=== PATIENT | female | born 1960 | race Caucasian/White ===

== ENCOUNTER 2018-02-09 16:53 | Emergency (ER) | payer SELFPAY ==
[2018-02-09] MEDS ORDERED: Benzonatate 100 MG CAP ONE (17:48)
[2018-02-09] MEDS ORDERED: Azithromycin 250 MG TAB ONE (17:48)
--- NOTE | 2018-02-09 21:49 | RAD ---
CHEST TWO VIEWS: 02/09/18 No prior films are available for comparison. There is a small amount of streaking in the left lung ba se. I cannot exclude a small developing infiltrate here. There is a 6 mm nodular density seen in the left mid lung zone that is indeterminate in significance. The right lung is clear. There are no effus ions. The heart size is normal. Calcification is seen in the aortic arch. IMPRESSION: 1. Left basilar streaking. Early infiltrate possible. 2. Vague 6 mm nodular density in the left mid lung zone. This would need elective evaluation wit h CT to help determine its significance. Alternatively, if an old chest film is available, this would be even more useful and may preclude further studies. 3. Arteriosclerosis. Code T POS: HOME
== END 2018-02-09 17:53 | disposition home or self-care (01) ==
LOC: BURERS 16:53
DX: J20.9 Acute bronchitis, unspecified (principal); J01.90 Acute sinusitis, unspecified; M06.9 Rheumatoid arthritis, unspecified; J44.9 Chronic obstructive pulmonary disease, unspecified; Z87.891 Personal history of nicotine dependence
CPT/HCPCS: 71046

== ENCOUNTER 2018-09-30 17:30 | Emergency (ER) | payer SELFPAY ==
[2018-09-30 19:22] LABS: #Basophils 0.1 thou/uL (0.0-0.2); #Eosinphils 0.2 thou/uL (0.0-0.7); #Lymphocytes 2.6 thou/uL (1.20-3.40); #Monocytes 0.7 thou/uL (0.11-0.59); #Neutrophils 5.7 thou/uL (1.40-6.50); %Eosinophils 2.6 % (0.0-10.0); %Lymphocytes 27.9 % (21.0-51.0); %Monocytes 7.4 % (0.0-10.0); Hemoglobin 13.6 g/dL (12.0-16.0); Mean Corpuscular HGB CONC 33.6 g/dL (32.0-36.0); Mean Corpuscular Hemoglobin 29.3 pg (27.0-31.0); Mean Corpuscular Volume 87.3 fL (78.0-98.0); Mean Platelet Volume 8.6 fL (7.4-10.4); Platelet Count 300 thou/uL (130-400); Red Blood Cell (RBC) Count 4.64 mill/uL (4.20-5.40); White Blood Cell (WBC) Count 9.3 thou/uL (4.8-10.8)
[2018-09-30] MEDS ORDERED: Ketorolac Tromethamine 30 MG/ML VIAL ONE (19:22)
[2018-09-30 19:34] LABS: Anion Gap 14 mmol/L (10-20); BUN (Urea Nitrogen) 23 mg/dL (9.8-20.1); Calc. Creatinine Clearance 0 mL/min (70-130); Calcium 9.7 mg/dL (7.8-10.44); Carbon Dioxide 23 mmol/L (22-29); Chloride 110 mmol/L (98-107); Estimated GFR-MDRD 65; Glucose 91 mg/dL (70-105); Potassium 4.2 mmol/L (3.5-5.1); Sodium 143 mmol/L (136-145)
--- NOTE | 2018-10-01 07:40 | RAD ---
LEFT KNEE 4 VIEWS: DATE: 09/30/2018. FINDINGS: No fracture, dislocation, or joint space abnormality was seen. There may be a small joint effusion, however. IMPRESSION: Possible small joint effusion. Exam otherwise negative. POS: HOME
== END 2018-09-30 20:20 | disposition short-term general hospital (02) ==
LOC: BURERS 17:30
DX: M17.12 Unilateral primary osteoarthritis, left knee (principal); J44.9 Chronic obstructive pulmonary disease, unspecified
CPT/HCPCS: 20610; 80048; 85025; 85652; 87040; 87070; 87205; 87252; 96374; J1885

== ENCOUNTER 2019-03-06 20:46 | Emergency (ER) | payer SELFPAY ==
[2019-03-06] MEDS ORDERED: Ketorolac Tromethamine 60 MG/2 ML VIAL ONE (21:40)
[2019-03-06] MEDS ORDERED: methylPREDNISolone Sod Succ/PF 125 MG/2 ML VIAL ONE (21:40)
== END 2019-03-06 22:00 | disposition home or self-care (01) ==
LOC: BURERS 20:46
DX: M06.9 Rheumatoid arthritis, unspecified (principal); J44.9 Chronic obstructive pulmonary disease, unspecified
CPT/HCPCS: 96372; J1885; J2930

== ENCOUNTER 2019-08-10 23:13 | Emergency (ER) | payer SELFPAY ==
[2019-08-10] MEDS ORDERED: Ketorolac Tromethamine 60 MG/2 ML VIAL ONE (23:57)
[2019-08-10] MEDS ORDERED: Dexamethasone 4 mg/ml Vial ONE (23:57)
== END 2019-08-11 00:03 | disposition home or self-care (01) ==
LOC: BURERS 23:13
DX: M16.12 Unilateral primary osteoarthritis, left hip (principal)
CPT/HCPCS: 96372; 99283; J1100; J1885

== ENCOUNTER 2020-07-05 15:39 | Emergency (ER) | payer SELFPAY ==
[2020-07-05] MEDS ORDERED: Adacel (T-DAP) 0.5 ML SYRINGE ONE (16:33)
== END 2020-07-05 16:45 | disposition home or self-care (01) ==
LOC: BURERS 15:39
DX: S01.312A Laceration without foreign body of left ear, initial encounter (principal); Z23 Encounter for immunization; M06.9 Rheumatoid arthritis, unspecified; F17.210 Nicotine dependence, cigarettes, uncomplicated; Y04.0XXA Assault by unarmed brawl or fight, initial encounter
CPT/HCPCS: 12011; 90471; 90715

== ENCOUNTER 2020-09-25 06:11 | Emergency (ER) | payer SELFPAY ==
[2020-09-25 20:01] LABS: SARS-CoV-2 MS2 Positive; SARS-CoV-2 N Gene Positive; SARS-CoV-2 S Gene Positive; SARS-CoV-2 by NAA DETECTED (NotDetected); SARS-CoV-2 orf1ab Positive
== END 2020-09-25 06:35 | disposition home or self-care (01) ==
LOC: BURERS 06:11
DX: U07.1 COVID-19 (principal); F17.210 Nicotine dependence, cigarettes, uncomplicated
CPT/HCPCS: 87635; 99283; U0003

== ENCOUNTER 2020-11-05 16:24 | Emergency (ER) | payer SELFPAY ==
[2020-11-05] MEDS ORDERED: HYDROcodone/Acetaminophen 5/325 mg Tablet ONE (17:21)
[2020-11-05] MEDS ORDERED: predniSONE 20 MG TAB ONE (17:21)
[2020-11-05] MEDS ORDERED: Ketorolac Tromethamine 30 MG/ML VIAL ONE (17:21)
== END 2020-11-05 17:40 | disposition home or self-care (01) ==
LOC: BURERS 16:24
DX: M06.9 Rheumatoid arthritis, unspecified (principal); F17.210 Nicotine dependence, cigarettes, uncomplicated
CPT/HCPCS: 96372; 99283; J1885; J7512

== ENCOUNTER 2021-01-10 22:13 | Emergency (ER) | payer SELFPAY ==
[2021-01-10] MEDS ORDERED: Azithromycin 250 MG TAB ONE (22:33)
== END 2021-01-10 22:45 | disposition home or self-care (01) ==
LOC: BURERS 22:13
DX: R05 Cough (principal); F17.210 Nicotine dependence, cigarettes, uncomplicated
CPT/HCPCS: 99283

== ENCOUNTER 2021-05-29 09:45 | Emergency (ER) | payer SELFPAY ==
[2021-05-29] MEDS ORDERED: predniSONE 20 MG TAB ONE (10:22)
[2021-05-29] MEDS ORDERED: Ketorolac Tromethamine 60 MG/2 ML VIAL ONE (10:22)
== END 2021-05-29 10:30 | disposition home or self-care (01) ==
LOC: BURERS 09:45
DX: M06.9 Rheumatoid arthritis, unspecified (principal); F17.210 Nicotine dependence, cigarettes, uncomplicated
CPT/HCPCS: 96372; 99282; J1885; J7512

== ENCOUNTER 2021-08-20 16:43 | Emergency (ER) | payer SELFPAY ==
[2021-08-20] MEDS ORDERED: Ketorolac Tromethamine 30 MG/ML VIAL ONE (17:28)
[2021-08-20] MEDS ORDERED: traMADol HCl 50 MG TAB ONE (17:28)
== END 2021-08-20 17:34 | disposition home or self-care (01) ==
LOC: BURERS 16:43
DX: M54.41 Lumbago with sciatica, right side (principal); M06.9 Rheumatoid arthritis, unspecified; F17.210 Nicotine dependence, cigarettes, uncomplicated; Z79.899 Other long term (current) drug therapy
CPT/HCPCS: 96372; 99283; J1885

== ENCOUNTER 2021-11-28 15:14 | Emergency (ER) | payer SELFPAY ==
[2021-11-28] MEDS ORDERED: HYDROcodone/Acetaminophen 10/325 mg Tablet ONE (15:45)
[2021-11-28] MEDS ORDERED: methylPREDNISolone Sod Succ/PF 125 MG/2 ML VIAL ONE (15:45)
== END 2021-11-28 15:54 | disposition home or self-care (01) ==
LOC: BURERS 15:14
DX: M06.832 Other specified rheumatoid arthritis, left wrist (principal); M06.831 Other specified rheumatoid arthritis, right wrist; M06.842 Other specified rheumatoid arthritis, left hand; M06.841 Other specified rheumatoid arthritis, right hand; F17.210 Nicotine dependence, cigarettes, uncomplicated; Z79.899 Other long term (current) drug therapy
CPT/HCPCS: 96372; 99283; J2930

== ENCOUNTER 2022-05-01 13:53 | Emergency (ER) | payer SELFPAY ==
[2022-05-01] MEDS ORDERED: methylPREDNISolone Sod Succ/PF 125 MG/2 ML VIAL ONE (14:20)
== END 2022-05-01 14:42 | disposition home or self-care (01) ==
LOC: BURERS 13:53
DX: M06.9 Rheumatoid arthritis, unspecified (principal); F17.210 Nicotine dependence, cigarettes, uncomplicated
CPT/HCPCS: 96372; 99283; J2930

== ENCOUNTER 2022-05-12 17:06 | Emergency (ER) | payer SELFPAY ==
[2022-05-12] MEDS ORDERED: methylPREDNISolone Sod Succ/PF 125 MG/2 ML VIAL ONE (17:25)
== END 2022-05-12 17:35 | disposition home or self-care (01) ==
LOC: BURERS 17:06
DX: M06.9 Rheumatoid arthritis, unspecified (principal); F17.210 Nicotine dependence, cigarettes, uncomplicated
CPT/HCPCS: 96372; 99283; J2930